=== PATIENT | female | born 1955 | race Caucasian/White ===

== ENCOUNTER 2018-12-25 17:02 | Emergency (ER) | payer OTHER ==
[2018-12-25] MEDS: IPRATROPIUM (NEB) 0.5 MG/2.5 ML AMP NEB (18:17)
[2018-12-25] MEDS: ALBUTEROL 0.083% (NEB) 2.5 MG/3 ML AMP NEB (18:17)
[2018-12-25 18:38] LABS: ADD MAN DIFF? NO
[2018-12-25 18:42] LABS: WHITE BLOOD COUNT 8.6 10^3/ul (4.8-10.8)
[2018-12-25 18:42] LABS: BASOPHIL # 0.1 10^3/ul (0.0-0.1); BASOPHILS % 0.8 % (0.0-2.0); EOSINOPHILS # 0.3 10^3/ul (0.0-0.5); EOSINOPHILS % 2.9 % (0.0-7.0); HEMATOCRIT 37.9 % (37.0-47.0); HEMOGLOBIN 12.5 g/dl (12.0-16.0); LYMPHOCYTES # 2.1 10^3/ul (0.8-2.9); LYMPHOCYTES % 23.8 % (15.0-51.0); MEAN CORPUSCULAR HEMOGLOBIN 31.1 pg (29.0-33.0); MEAN CORPUSCULAR VOLUME 94.3 fl (82.0-101.0); MEAN PLATELET VOLUME 9.8 fl (7.4-10.4); MONOCYTE # 0.7 10^3/ul (0.3-0.9); MONOCYTES % 8.5 % (0.0-11.0); NEUTROPHIL # 5.4 10^3/ul (1.6-7.5); NEUTROPHILS % 63.3 % (39.0-77.0); PLATELET COUNT 222 10^3/UL (140-415); RED BLOOD COUNT 4.02 10^6/ul (4.20-5.40)
[2018-12-25 19:03] LABS: ANION GAP 7 (5-13); BLOOD UREA NITROGEN 19 mg/dl (7-20); CALCIUM 9.8 mg/dl (8.4-10.2); CARBON DIOXIDE 26 mmol/L (21-31); CHLORIDE 105 mmol/L (97-110); CREATININE 1.29 mg/dl (0.44-1.00); Estimated GFR 42 mL/min (>60); GLUCOSE 96 mg/dl (70-220); SODIUM 138 mmol/L (135-144)
== END 2018-12-25 19:47 | disposition home or self-care (01) ==
LOC: E/R 17:02
DX: N18.9 Chronic kidney disease, unspecified (principal); J45.21 Mild intermittent asthma with (acute) exacerbation; I12.9 Hypertensive chronic kidney disease with stage 1 through stage 4 chronic kidney disease, or unspecified chronic kidney disease
CPT/HCPCS: 71045; 80048; 85025; 93005; 94664; 99285-25

== ENCOUNTER 2019-01-06 15:16 | Emergency (ER) | payer OTHER ==
[2019-01-06 17:00] LABS: ADD MAN DIFF? NO
[2019-01-06 17:02] LABS: BASOPHIL # 0.1 10^3/ul (0.0-0.1); BASOPHILS % 0.9 % (0.0-2.0); EOSINOPHILS # 0.3 10^3/ul (0.0-0.5); EOSINOPHILS % 2.9 % (0.0-7.0); HEMATOCRIT 38.2 % (37.0-47.0); HEMOGLOBIN 12.5 g/dl (12.0-16.0); LYMPHOCYTES # 2.1 10^3/ul (0.8-2.9); LYMPHOCYTES % 19.3 % (15.0-51.0); MEAN CORPUSCULAR HEMOGLOBIN 31.3 pg (29.0-33.0); MEAN CORPUSCULAR HGB CONC 32.7 g/dl (32.0-37.0); MEAN CORPUSCULAR VOLUME 95.5 fl (82.0-101.0); MEAN PLATELET VOLUME 9.7 fl (7.4-10.4); MONOCYTE # 0.9 10^3/ul (0.3-0.9); MONOCYTES % 8.6 % (0.0-11.0); NEUTROPHIL # 7.5 10^3/ul (1.6-7.5); NEUTROPHILS % 67.9 % (39.0-77.0); PLATELET COUNT 295 10^3/UL (140-415)
[2019-01-06 17:20] LABS: ANION GAP 11 (5-13); BLOOD UREA NITROGEN 17 mg/dl (7-20); CALCIUM 10.1 mg/dl (8.4-10.2); CARBON DIOXIDE 24 mmol/L (21-31); CHLORIDE 105 mmol/L (97-110); CREATININE 1.37 mg/dl (0.44-1.00); Estimated GFR 39 mL/min (>60); GLUCOSE 110 mg/dl (70-220); POTASSIUM 4.7 mmol/L (3.5-5.1); SODIUM 140 mmol/L (135-144)
[2019-01-06] MEDS: IPRATROPIUM (NEB) 0.5 MG/2.5 ML AMP INH (17:27)
[2019-01-06] MEDS: ALBUTEROL 0.083% (NEB) 2.5 MG/3 ML AMP INH (17:27)
[2019-01-06 17:32] LABS: TROPONIN-I < 0.012 ng/ml (0.000-0.120)
[2019-01-06] MEDS: MAGNESIUM SULFATE 2 GM/50 ML 50 ML IVPB (17:36)
[2019-01-06] MEDS: DEXAMETHASONE 10 MG/ML 1 ML INJ IV (17:36)
== END 2019-01-06 19:23 | disposition home or self-care (01) ==
LOC: E/R 15:16
DX: J44.1 Chronic obstructive pulmonary disease with (acute) exacerbation (principal); I10 Essential (primary) hypertension
CPT/HCPCS: 36415; 71045; 80048; 84484; 85025; 87400; 93005; 94664; 96374; 96375; 99285-25